=== PATIENT | male | born 1960 | race Caucasian/White ===

== ENCOUNTER 2017-01-27 14:16 | Observation (INO) ==
--- NOTE | 2017-01-27 14:56 | EKG Report ---
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
[2017-01-27 15:14] LABS: Basophils % 0.4 % (0.0-0.8); Eosinophils # 0.1 10*3/uL (0.0-0.87); Eosinophils % 0.7 % (0.00-10.9); Hematocrit 40.6 VOL% (42.0-52.0); Hemoglobin 14.3 GM/DL (14.0-18.0); Immature Granulocytes % 0.1 %; Immature Granulocytes Absolute 0.01 #; Lymphocytes # 2.4 10*3/uL (1.4-4.0); Mean Corpuscular HGB Conc 35.2 GM/DL (32-36); Mean Corpuscular Hemoglobin 30 PG (27-34); Mean Platelet Volume 9.9 FL (9.6-12.0); Monocytes # 0.4 10*3/uL (0.11-0.8); Monocytes % 5.5 % (1.7-12.7); Neutrophils # 4.3 10*3/uL (1.4-7.4); Neutrophils % 60.3 % (38.7-73.9); Platelet Count 123 T/CUMM (130-400); Red Blood Count 4.72 MC/CUMM (3.8-5.5); Red Cell Distribution Width 12.5 % (9.3-17.3); White Blood Count 7.1 T/CUMM (4-12)
[2017-01-27] MEDS ORDERED: SODIUM CHLORIDE 0.9% 500 ML IV STA (15:23)
[2017-01-27 15:44] LABS: INR 1.2; PT Patient Result 12.3 SECS
[2017-01-27 15:49] LABS: Alanine Aminotransferase 38 U/L (16-61); Albumin 3.8 G/DL (3.4-5.0); Alkaline Phosphatase 54 U/L (45-117); Aspartate Amino Transferase 24 U/L (0-37); Bilirubin,Total < 0.39 MG/DL (0.2-1.0); Blood Urea Nitrogen 14 MG/DL (7-18); Calcium 8.9 MG/DL (8.5-10.1); Glucose 96 MG/DL (74-106); Osmolality,Calculated 277.5 MOS/KG (273-304); Potassium 4.2 MMOL/L (3.5-5.1); Sodium 139 MMOL/L (136-145); Total Protein 7.4 G/DL (6.4-8.3)
--- NOTE | 2017-01-27 15:54 | CT Report ---
CT of the head without contrast. Indication: Mental status changes. Comparison: January 25, 2007. There is heavy calcific plaque present within the intracranial internal carotid arteries. There is a mild partial empty sella. There is either an arachnoid cyst or a prominent cisterna magna, which is stable. There is no mass effect or midline shift. There is no evidence of acute hemorrhage. No cortical infarcts are seen. The calvarium is intact. Included paranasal sinuses and the mastoid air cells are clear. Impression: Stable appearance of the brain. No acute intracranial process is seen. The CT exam was performed using one or more of the following dose reduction techniques: Automated exposure control, adjustment of the mA and/or kV according to patient size, or use of iterative reconstruction technique. PROCEDURE INTERPRETED AT [facility] DEPARTMENT OF RADIOLOGY Final Report Signed by: Dr. Carlie Hickman
--- NOTE | 2017-01-27 15:58 | XRay Report ---
Single view of the chest. Indication: Altered mental status. Comparison: June 09, 2015. The heart is normal in size. The lung dowling are hyperexpanded. There is interstitial fibrosis and scarring. There are calcified granulomas. No consolidation, pneumothorax, or pleural effusion. Chronic changes at the right shoulder. Impression: COPD. No acute abnormality. PROCEDURE INTERPRETED AT [facility] DEPARTMENT OF RADIOLOGY Final Report Signed by: Dr. Carlie Hickman
[2017-01-27 16:02] LABS: Magnesium 2.2 MG/DL (1.8-2.4); Troponin I Only < 0.015 NG/ML (0.00-0.045)
[2017-01-27 16:13] LABS: Prolactin 5.2 NG/ML
--- NOTE | 2017-01-27 16:18 | Emergency Department Note ---
Todd Rajan Brooke, am scribing for, and in the presence of, Nathaniel oD MD 15 :32. Hi Rajan Charles R, MD, personally performed the services described in this documentation, ascribed by Pinky Brooks in my presence, and it is both accurate and complete 618 . Arrival - Arrival Chief Complaint: Altered Mental Status Stated Complaint: DIZZY/SLURRED SPEECH/SAYING OFF WALL THINGS ED Nursing Triage Note: Pt into ER for altered mental status started today at work. States he feels weird and not here with a KUMAR and he was started on a new med by Dr Lee 2 days ago. Mode of Arrival: Wheelchair Limitations: No Limitations Source: Patient, RN Notes Reviewed Time Seen by Provider: 01/27/17 14:28 - History of Present Illness HPI Narrative: Patient is a 56 year old male who presents to the ED with c/o altered mental status. Patient says he was at work, at a halfway, talking to someone and then doesn't remember what happened. He says he was told that he leaned up against a wall and was "in a daze." Patient says he did not know where he was at. He is unsure if his speech was slurred at the time but it is not currently. He says "they" sat him down at took his blood pressure, temperature, and blood sugar but everything was "okay." Patient states "I feel like I'm dreaming, like I'm not here." He says his vision is currently blurry and there is some numbness to the right side of his face. He has not walked since this episode happened. Patient says he felt something "pop" in his head, about three weeks ago and has been having "horrible" headaches since. He had a CT scan done, two days ago, but says it was negative and his doctor told him he needed to be treated for Migraines. Patient has PMHx of liver cancer. He does not take any medications. Patient is a smoker and says a pack of cigarettes will last about a week. He denies any drug or alcohol use. Allergies/Adverse Reactions: Allergies Allergy/AdvReac Type Severity Reaction Status Date / Time Sulfa (Sulfonamide AdvReac Unknown/Unable Verified 05/09/16 22:37 Antibiotics) to obtain Home Medications: Home Medications Medication Instructions Recorded Confirmed Type Butalbital/Acet/Caff 50-325-40 1 - 2 tablet PO TID PRN 01/27/17 01/27/17 History [Fioricet 50-325-40 mg Tablet] Review of System - Review of System 12 point system: reviewed and no additional remarkable complaints except as stated - Review of System Constitutional: Absent: fever Eyes: Present: vision change (blurry) Respiratory: Absent: respiratory distress Skin: Absent: rash Neurological: Present: numbness (right side of face), other (episode where was "in a daze" and now feels "like I'm dreaming") Medical,Surgical,& Family Hx - Medical History Neurology: No history of: Seizures Genitourinary: History of: Kidney Stones Gastrointestinal: History of: Liver Problems (STAGE II LIVER CA) Other: History of: Miscellaneous Medical Problems (HEP C) - Surgical History Thoracic Surgeries: Patient denies;: Lobectomy Neurologic Surgeries: Patient denies: Neurologic Surgery Abdominal Surgeries: Surgical HX of: Abdominal Surgery, Appendectomy, Cholecystectomy Reproductive Surgeries: Patient denies;: Genitourinary Surgery - Social History Smoking Status: Current every day smoker Exam Vital Signs: Vital Signs Temperature 97.6 F 01/27/17 14:56 Pulse Rate 66 01/27/17 14:56 Respiratory Rate 16 01/27/17 14:56 Blood Pressure 127/83 01/27/17 14:56 O2 Sat by Pulse Oximetry 100 01/27/17 16:45 - General General appearance: alert, in no apparent distress - Head Head exam: Present: atraumatic, normocephalic - Eye Eye exam: Present: normal appearance, PERRL, EOMI - ENT ENT exam: Present: normal exam - Neck Neck exam: Present: normal inspection - Chest Chest inspection: Present: normal inspection, symmetric chest wall rise - Respiratory Respiratory exam: Present: normal lung sounds bilaterally - Cardiovascular Cardiovascular exam: Present: regular rate, normal rhythm, normal heart sounds - Abdominal Exam Abdominal exam: Present: soft, normal bowel sounds. Absent: distention, tenderness - Extremities Exam Extremities exam: Present: normal inspection - Back Exam Back exam: Present: normal inspection - Neurological Exam Neurological exam: Present: alert, oriented X3, CN II-XII intact, other (No CVA features. Talking but says he "feels like I'm dreaming." No confusion. Right facial numbness.) - Psychiatric Psychiatric exam: Present: normal affect, normal mood - Skin Skin exam: Present: warm, dry, intact, normal color Course - Consultations Consultation #1: Dr. Lee will admit patient Time: 18:19 Results - Labs CBC & BMP: 01/27/17 15:00 01/27/17 15:00 Lab Results: I have reviewed the patients labs Labs: Laboratory Tests 01/27/17 01/27/17 01/27/17 15:00 15:00 15:00 INR 1.2 PT Patient/Control Mix 12.3 Sodium 139 Potassium 4.2 Chloride 108 H Carbon Dioxide 24 Anion Gap 11.2 BUN 14 Creatinine 0.90 GFR Calculation 104 BUN/Creatinine Ratio 15.00 Glucose 96 Calculated Osmolality 277.5 Calcium 8.9 Magnesium 2.2 Total Bilirubin < 0.39 AST 24 ALT 38 Alkaline Phosphatase 54 Troponin I < 0.015 Total Protein 7.4 Albumin 3.8 Globulin 3.6 H Albumin/Globulin Ratio 1.0 L Serum Alcohol < 15 L Laboratory Tests 01/27/17 15:00 Prolactin 5.2 Treponema pallidum IgG Nonreactive Laboratory Tests 01/27/17 15:00 ESR Westergren 17 Laboratory Tests 01/27/17 01/27/17 15:00 15:00 Urine Color Yellow Urine Appearance Clear Urine pH 6.0 Ur Specific Allen 1.017 Urine Protein Negative Urine Glucose (UA) Negative Urine Ketones Negative Urine Blood Negative Urine Nitrate Negative Urine Bilirubin Negative Urine Urobilinogen < 2.0 H Urine Leukocytes Negative Urine RBC 1 Urine WBC 1 Urine Mucus Occasional Ur Culture Indicated? Not indicated Urine Opiates Screen Negative Ur Barbiturates Screen Positive H Ur Phencyclidine Scrn Negative U Amphetamine/Methamph Negative U Benzodiazepines Scrn Negative U Cocaine Metab Screen Negative U Cannabinoids Screen Positive H - Diagnostic Findings Procedure: Chest x-ray: report reviewed by me (COPD. No acute abnormality.), KUB x-ray: pending, CT: report reviewed by me (CT head/brain wo con: Stable appearance of the brain. No acute intracranial process is seen. ) Disposition Clinical Impression: Altered mental status, Hepatitis C, Confusion Case discussed with: patient Disposition: Still a Patient Condition: Stable Time of Disposition: 18:20
[2017-01-27 17:30] LABS: Apearance,Urine CLEAR (Clear); Bilirubin,Urine Negative (Negative); Blood, Urine Negative (Negative); Glucose,Urine (UA) Negative (Negative); Ketones,Urine Negative (Negative); Mucus,Urine Occasional /LPF (Occasional); Nitrite,Urine Negative (Negative); Protein,Urine Negative; RBC,Urine 1 /HPF (0-4); Urine Color Yellow (Yellow); Urine Specific Gravity 1.017 (1.001-1.035); Urine Urobilinogen < 2.0 EU/DL (0.2-1.0); WBC,Urine 1 /HPF (0-6)
[2017-01-27 17:41] LABS: Barbiturates Screen,Urine Positive (Negative); Benzodiazepines Screen,Urine Negative (Negative); Cannabinoid Screen,Urine Positive (Negative); Opiate Screen,Urine Negative (Negative); Phencyclidine Screen,Urine Negative (Negative)
[2017-01-27] MEDS ORDERED: ENOXAPARIN 40 MG/0.4 ML SYRINGE SUBCUT SCH (21:00)
[2017-01-27] MEDS ORDERED: ONDANSETRON 4 MG/2 ML VIAL IV PRN (21:13)
[2017-01-27] MEDS ORDERED: LACTULOSE 20 GM/30 ML UDCUP PO PRN (21:13)
[2017-01-27] MEDS ORDERED: MORPHINE 2 MG/1 ML SYRINGE IV PRN (21:13)
[2017-01-27] MEDS ORDERED: ACETAMINOPHEN 325 MG TABLET PO PRN (21:13)
[2017-01-27] MEDS: DOCUSATE SODIUM 100 MG CAPSULE PO SCH (22:52)
[2017-01-27] MEDS: SODIUM CHLORIDE 0.9% 1,000 ML IV SCH (22:53)
[2017-01-28 05:05] LABS: Basophils % 0.5 % (0.0-0.8); Eosinophils # 0.1 10*3/uL (0.0-0.87); Eosinophils % 1.2 % (0.00-10.9); Hematocrit 38.8 VOL% (42.0-52.0); Hemoglobin 13.6 GM/DL (14.0-18.0); Immature Granulocytes % 0.3 %; Immature Granulocytes Absolute 0.02 #; Lymphocytes # 2.5 10*3/uL (1.4-4.0); Lymphocytes % 44.3 % (21.2-54.2); Mean Corpuscular HGB Conc 35.1 GM/DL (32-36); Mean Corpuscular Hemoglobin 30 PG (27-34); Mean Corpuscular Volume 86.6 FL (87-102); Mean Platelet Volume 10.4 FL (9.6-12.0); Monocytes # 0.4 10*3/uL (0.11-0.8); Monocytes % 6.1 % (1.7-12.7); Neutrophils # 2.7 10*3/uL (1.4-7.4); Neutrophils % 47.6 % (38.7-73.9); Platelet Count 97 T/CUMM (130-400); Red Blood Count 4.48 MC/CUMM (3.8-5.5); Red Cell Distribution Width 12.6 % (9.3-17.3); White Blood Count 5.7 T/CUMM (4-12)
[2017-01-28 05:28] LABS: Lymphocytes 34 % (20-55); Segmented Neutrophils 58 % (50-85); Total Cells Counted 100
[2017-01-28 05:29] LABS: Hypochromasia Slight
[2017-01-28 05:30] LABS: Microcytosis Slight; Platelet Estimate Decreased
[2017-01-28 05:43] LABS: Alanine Aminotransferase 38 U/L (16-61); Albumin 3.2 G/DL (3.4-5.0); Alkaline Phosphatase 65 U/L (45-117); Aspartate Amino Transferase 23 U/L (0-37); Bilirubin,Total < 0.39 MG/DL (0.2-1.0); Blood Urea Nitrogen 16 MG/DL (7-18); Calcium 7.9 MG/DL (8.5-10.1); Cholesterol 90 MG/DL (50-200); Glucose 99 MG/DL (74-106); HDL Cholesterol 20 MG/DL (40-60); Magnesium 2.5 MG/DL (1.8-2.4); Osmolality,Calculated 279.4 MOS/KG (273-304); Potassium 4.2 MMOL/L (3.5-5.1); Sodium 140 MMOL/L (136-145); Total Protein 6.2 G/DL (6.4-8.3); Triglycerides 222 MG/DL (2-150); VLDL CHOLESTEROL 44.4 MG/DL
--- NOTE | 2017-01-28 08:22 | Family Practice History&Phys ---
Assessment and Plan (1) Transient ischemic attack Status: Acute Assessment and plan: 01/28/2017: We will get neurology to evaluate. Patient's been given appropriate medication/anticoagulation at this time. We will also check a B12 and folic acid. A carotid duplex has been ordered as well Current Visit: Yes (2) Deficit in communication due to slurred speech Status: Resolved Assessment and plan: 01/28/2017: No slurred speech present. Is very alert and oriented answering all questions Current Visit: Yes (3) Altered mental status Status: Acute Assessment and plan: 01/28/2017: Patient is quite alert and answering all questions appropriately will do a neurologic workup with neuro consult Current Visit: Yes History of Present Illness Chief complaint: Confusion, slurred speech History of present illness: Mr. Estrada is a 56 year old male Known to me. I see him in the clinic. 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 Apparently was at the skilled nursing outside yesterday standing talking to a cohort and according to second person he became "confused " and started having some slurred speech. He "stopped talking."Patient states he became like in a dream state and really does not remember anything too much after that until he got to the emergency room and when they asked him where he was he did not know. In addition have a little numbness to the right side of his face at the time. He never passed out, but leaned against the wall. It did not occur after he had leaned over and does not appear to be an orthostatic situation although he could have been a factor. Historically has a history of epilepsy when he was a child, secondary to a fall when he was 1 years old. His last known seizure was at about age 4 but he did take Dilantin and phenobarbital for these until he was up to over 9 or 10 years of age. Otherwise has a history of hepatitis C (liver enzymes are completely normal at present), recent headaches which have treated him for in the clinic. Essentially negative history otherwise. In the emergency room a CT of the head was negative, he did test positive for barbiturates but I had given him Fioricet, for his headaches, which would cause this to be positive. He admits that he smoked marijuana only January 09 but does not routinely smoke. I do not believe this was a major factor in the situation however told him he needed to not do this. Does use tobacco on a regular basis and occasional alcohol. At present no CN deficits or peripherall lateralizing signs. Alert and oriented without M or S deficits. Plan neuro concult and check further lab. Carotid dulplex. Home Medications Medication Instructions Recorded Confirmed Type Butalbital/Acet/Caff 50-325-40 1 - 2 tablet PO TID PRN 01/27/17 01/27/17 History [Fioricet 50-325-40 mg Tablet] Allergies Allergy/AdvReac Type Severity Reaction Status Date / Time Sulfa (Sulfonamide AdvReac Unknown/Unable Verified 05/09/16 22:37 Antibiotics) to obtain 12 point system: reviewed and no additional remarkable complaints except as stated (those mentioned in HandP) - Constitutional Constitutional: Absent: anorexia - EENT Eyes: Present: blurry vision. Absent: diplopia, loss of vision - Cardiovascular Cardiovascular: Absent: chest pain at rest - Respiratory Respiratory: Absent: cough - Gastrointestinal Gastrointestinal: Absent: abdominal pain - Genitourinary Genitourinary: Absent: difficulty urinating - Neurological Neurological: Absent: abnormal gait Medical,Surgical,& Family Hx - Medical History Neurology: History of: Seizures HEENT: No history of: Ear Problem, Eye Problem, Dental Problems, Glaucoma, Oral Cancer, HEENT Problems Respiratory: History of: Bronchitis Genitourinary: History of: Kidney Stones Gastrointestinal: History of: Liver Problems (STAGE II LIVER CA) Musculoskeletal: No history of: Amputation Other: History of: Miscellaneous Medical Problems (HEP C) - Surgical History Thoracic Surgeries: Patient denies;: Organ Transplant, Lobectomy Neurologic Surgeries: Patient denies: Neurologic Surgery HEENT Surgeries: Surgical HX of: Tonsilectomy & Adenoidectomy Patient denies: Eye Surgery Abdominal Surgeries: Surgical HX of: Abdominal Surgery, Appendectomy, Cholecystectomy Reproductive Surgeries: Patient denies;: Genitourinary Surgery Orthopedic Surgeries: Patient denies;: Implanted Devices, Orthopedic Surgery, Spinal Surgery, Total Hip Replacement, Total Knee Replacement - Family History Family History: Reports;: Family Diabetes, Family Hypertension - Social History Smoking Status: Current every day smoker Frequency of Alcohol Use: None Type of Drug Use: None Exam - Constitutional Vitals: Period Temp Pulse Resp BP Sys/Burgess Pulse Ox Last 24 Hr 97.1 F-98.2 F 56-73 16-20 97-127/61-83 21-100 Exam: Generally patient is alert and oriented and no focal findings at present. HEENT: Pupils equally reactive to light extraocular movements are intact, neck is supple trachea midline patient has good cough and swallow reflex. Cardiovascular rate is regular no gallop or rub denies any chest pain Lungs clear no shortness of breath (patient is a heavy smoker) Abdomen soft nondistended denies any abdominal pain and is eating well at present Extremities no clubbing cyanosis edema Neurologically normal cranial nerves, no peripheral lateralizing signs, no motor or sensory deficit Results - Labs CBC & BMP: 01/28/17 04:47 01/28/17 04:47 Quality Measures - Stroke Symptom Onset Unknown: No
[2017-01-28] MEDS ORDERED: PANTOPRAZOLE 40 MG TABLET PO SCH (09:00)
[2017-01-28] MEDS: DOCUSATE SODIUM 100 MG CAPSULE PO SCH (09:40)
--- NOTE | 2017-01-28 09:40 | Ultrasound Report ---
US carotid duplex BI Indication: Altered mental status. Comparison: Carotid ultrasound dated January 06, 2013. Technique: Multiple longitudinal and transverse real-time sonographic images of the bilateral carotid arterial systems are obtained with grayscale, spectral, and color Doppler analysis. Findings: Peak systolic velocities within the right CCA, proximal ICA, and distal ICA are 78, 95, and 109 cm/s respectively. Peak systolic velocities within the left CCA, proximal ICA, and distal ICA are 98, 72, and 104 cm/s respectively. ICA/CCA ratios on the right and left are 1.4 and 1.1 respectively. Antegrade flow demonstrated within the bilateral vertebral arteries. Grayscale imaging demonstrates mild bilateral atherosclerotic plaque. IMPRESSION: No convincing sonographic evidence of significant (50% or greater) narrowing of either cervical internal carotid artery. Indirect NASCET criteria utilized. PROCEDURE INTERPRETED AT [facility] DEPARTMENT OF RADIOLOGY Final Report Signed by: Dr Jose Guadalupe Matson
[2017-01-28] MEDS: SODIUM CHLORIDE 0.9% 1,000 ML IV SCH ×2 (09:42→17:23)
[2017-01-28 10:21] LABS: Folate 21.4 NG/ML (5.4-24.0)
--- NOTE | 2017-01-28 12:55 | Neurology Consult Note ---
History of Present Illness History of present illness: 56 years old right-handed white gentleman with past medical history significant for history of smoking, questionable childhood seizure, hepatitis C, new onset of headaches admitted to the hospital after he developed some confusion and slurred speech. 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 Apparently was at the prison outside yesterday standing talking to a cohort and according to second person he became "confused" and started having some slurred speech. He "stopped talking."Patient states he became like in a dream state and really does not remember anything too much after that until he got to the emergency room and when they asked him where he was he did not know. In addition have a little numbness to the right side of his face at the time. He never passed out, but leaned against the wall. CT of the head and carotid ultrasound are all unremarkable. Triglycerides are high. Toxicology reveals positive marijuana. Patient is back to his normal self. Is still complaining of some headache. Sed rate is 17. Home Medications Medication Instructions Recorded Confirmed Type Butalbital/Acet/Caff 50-325-40 1 - 2 tablet PO TID PRN 01/27/17 01/27/17 History [Fioricet 50-325-40 mg Tablet] Allergies Allergy/AdvReac Type Severity Reaction Status Date / Time Sulfa (Sulfonamide AdvReac Unknown/Unable Verified 05/09/16 22:37 Antibiotics) to obtain 12 point system: reviewed and no additional remarkable complaints except as stated Medical,Surgical,& Family Hx - Medical History Neurology: History of: Seizures HEENT: No history of: Ear Problem, Eye Problem, Dental Problems, Glaucoma, Oral Cancer, HEENT Problems Respiratory: History of: Bronchitis Genitourinary: History of: Kidney Stones Gastrointestinal: History of: Liver Problems (STAGE II LIVER CA) Musculoskeletal: No history of: Amputation Other: History of: Miscellaneous Medical Problems (HEP C) - Surgical History Thoracic Surgeries: Patient denies;: Organ Transplant, Lobectomy Neurologic Surgeries: Patient denies: Neurologic Surgery HEENT Surgeries: Surgical HX of: Tonsilectomy & Adenoidectomy Patient denies: Eye Surgery Abdominal Surgeries: Surgical HX of: Abdominal Surgery, Appendectomy, Cholecystectomy Reproductive Surgeries: Patient denies;: Genitourinary Surgery Orthopedic Surgeries: Patient denies;: Implanted Devices, Orthopedic Surgery, Spinal Surgery, Total Hip Replacement, Total Knee Replacement - Family History Family History: Reports;: Family Diabetes, Family Hypertension - Social History Smoking Status: Current every day smoker Frequency of Alcohol Use: None Type of Drug Use: None Exam - Constitutional Vitals: Period Temp Pulse Resp BP Sys/Burgess Pulse Ox Last 24 Hr 97.1 F-98.2 F 56-73 16-20 97-127/61-83 21-100 Exam: GENERAL: Patient is in no acute distress. NECK: Neck is supple. There is no JVD. No carotid bruits present. No thyroid masses. CVS: First and second heart sounds are normal. There is no S3 present. Regular rate and rhythm. RESPIRATORY: Lungs are clear to auscultation without any rales or rhonchi. ABDOMEN: Soft and non-tender. Bowel sounds are present. There is no hepatosplenomegaly. EXT: There is no palpable edema. Peripheral pulses are present. Skin: No rashes Central Nervous system: General: Alert, awake and Oriented x 3 Speech: Fluent Comprehension: Intact and normal Facial expressions: Normal Cranial Nerves: CN1/Olfactory: Normal CN II/ Optic: Normal, Visual Bashir unreliable CN III, and : BERT & EOMI CN V: Normal & intact CN VII: face is symmetric CNVIII: Normal CN XI/X/XI/XII: Intact and Normal Motor: Bulk and Tone is normal. Strength in the right 5/5 Strength in the left 5/5 Sensory: Grossly intact for all the modalities of PP, LT and temp sense Reflexes: 1+ and symmetrical Cerebellar function: Normal finger to nose and heel to squires testing. Toes: Equivocal Gait: Normal heel to heel and toe to toe and tandem walk. Results - Labs CBC & BMP: 01/28/17 04:47 01/28/17 04:47 Assessment and Plan (1) Daily headache Status: Acute Assessment and plan: Elavil 25 mg p.o. at bedtime Continue Fioricet as needed Current Visit: Yes (2) Transient ischemic attack Status: Acute Assessment and plan: Start aspirin a day Add Lipitor 10 mg daily Follow-up in 4 week Current Visit: Yes Specialty Discharge - Follow Up or Referrals Follow up with: Connor Moya MD [Physician] - 1 Month
[2017-01-28 16:09] VITALS: BP 131/80
--- NOTE | 2017-01-28 16:23 | Discharge Summary ---
Hospital Course - Hospital Course Hospital Course: 56 years old right-handed white gentleman and patient of mine with past medical history significant for history of smoking, questionable childhood seizure, hepatitis C, new onset of headaches admitted to the hospital after he developed some confusion and slurred speech. 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 Apparently was at the group home outside yesterday standing talking to a cohort and according to second person he became "confused " and started having some slurred speech. He "stopped talking."Patient states he became like in a dream state and really does not remember anything too much after that until he got to the emergency room and when they asked him where he was he did not know. In addition have a little numbness to the right side of his face at the time. He never passed out, but leaned against the wall. CT of the head and carotid ultrasound are all unremarkable. Triglycerides are high. Toxicology reveals positive marijuana. Patient is back to his normal self. Is still complaining of some headache. Sed rate is 17. Patient was evaluated treated and discharged from Neurology [facility] with DX TIA. He was treated wiht low dose Aspirin Elavil for headache and Lipitor for hyperlipidemia. He is to follow up with Neurology in one month and with me my office in one month. He is better this morning and ready for discharge at this time. Diagnosis - Discharge Diagnosis (1) Transient ischemic attack Status: Acute (2) Altered mental status Status: Acute Specialty Discharge - Follow Up or Referrals Follow up with: Connor Moya MD [Physician] - 1 Month (call tuesday morning to make a [address] Moya) Fraaz Lee DO [Physician] - 1 Month Discharge Plan - Discharge Data Disposition: Disch To Home/Self Care Condition at Discharge: Stable Discharge Diet: advance to your usual diet Activity: resume usual activities as tolerated Hygiene: no restrictions Weight Bearing at Discharge: weight bear as tolerated Driving: no restrictions Contact your physician if you experience:: fever over 101 - Discharge Medications New Amitriptyline [Elavil] 25 mg PO BEDTIME #90 tablet Aspirin EC Tab 81 mg PO DAILY tablet Atorvastatin [Lipitor] 10 mg PO BEDTIME #90 tablet Continue Butalbital/Acet/Caff 50-325-40 [Fioricet 50-325-40 mg Tablet] 1 - 2 tablet PO TID PRN PRN Reason: Headache - Follow Up or Referral Follow Up: Connor Moya MD [Physician] - 1 Month (call tuesday morning to make a [address] Moya) Faraz Lee DO [Physician] - 1 Month - Forms/Instructions Instructions: Altered Mental Status (GEN) Exam - Constitutional Vitals: Period Temp Pulse Resp BP Sys/[place] Pulse Ox Last 24 Hr 97.1 F-98.2 F 56-73 18-20 97-131/61-80 21-100 Discharge Results Labs on day of discharge: Labs from last 24 hours 01/28/17 01/28/17 01/28/17 04:47 04:47 04:47 WBC RBC Hgb Hct MCV MCH MCHC RDW Plt Count MPV Neut % (Auto) Lymph % (Auto) [place] % (Auto) Eos % (Auto) Baso % (Auto) Neut # (Auto) Lymph # (Auto) [place] # (Auto) Eos # (Auto) Baso # (Auto) Total Counted Immature Gran % Nucleated RBC % Immature Gran # Segmented Neutrophils Lymphocytes Monocytes Nucleated RBCs # Platelet Estimate Hypochromasia Microcytosis ESR Westergren Sodium 140 Potassium 4.2 Chloride 108 H Carbon Dioxide 26 Anion Gap 10.2 BUN 16 Creatinine 1.00 GFR Calculation 92 BUN/Creatinine Ratio 16.00 Glucose 99 Calculated Osmolality 279.4 Calcium 7.9 L Magnesium 2.5 H Total Bilirubin < 0.39 AST 23 ALT 38 Alkaline Phosphatase 65 Ammonia B-Natriuretic Peptide 60 Total Protein 6.2 L Albumin 3.2 L Globulin 3.0 Albumin/Globulin Ratio 1.0 L Triglycerides 222 H Cholesterol 90 LDL Cholesterol 50.0 VLDL Cholesterol 44.4 HDL Cholesterol 20 L Heart Disease Risk Ratio 4.50 Vitamin B12 279 Folate 21.4 Urine Color Urine Appearance Urine pH Ur Specific [place] Urine Protein Urine Glucose (UA) Urine Ketones Urine Blood Urine Nitrate Urine Bilirubin Urine Urobilinogen Urine Leukocytes Urine RBC Urine WBC Urine Mucus Ur Culture Indicated? Urine Opiates Screen Ur Barbiturates Screen Ur Phencyclidine Scrn U Amphetamine/Methamph U Benzodiazepines Scrn U Cocaine Metab Screen U Cannabinoids Screen 01/28/17 01/27/17 01/27/17 04:47 15:00 15:00 WBC 5.7 RBC 4.48 Hgb 13.6 L Hct 38.8 L MCV 86.6 L MCH 30 MCHC 35.1 RDW 12.6 Plt Count 97 L D MPV 10.4 Neut % (Auto) 47.6 Lymph % (Auto) 44.3 [place] % (Auto) 6.1 Eos % (Auto) 1.2 Baso % (Auto) 0.5 Neut # (Auto) 2.7 Lymph # (Auto) 2.5 [place] # (Auto) 0.4 Eos # (Auto) 0.1 Baso # (Auto) 0.0 Total Counted 100 Immature Gran % 0.3 Nucleated RBC % 0.0 Immature Gran # 0.02 Segmented Neutrophils 58 Lymphocytes 34 Monocytes 8 Nucleated RBCs # 0.00 Platelet Estimate Decreased Hypochromasia Slight Microcytosis Slight ESR Westergren Sodium Potassium Chloride Carbon Dioxide Anion Gap BUN Creatinine GFR Calculation BUN/Creatinine Ratio Glucose Calculated Osmolality Calcium Magnesium Total Bilirubin AST ALT Alkaline Phosphatase Ammonia B-Natriuretic Peptide Total Protein Albumin Globulin Albumin/Globulin Ratio Triglycerides Cholesterol LDL Cholesterol VLDL Cholesterol HDL Cholesterol Heart Disease Risk Ratio Vitamin B12 Folate Urine Color Urine Appearance Urine pH Ur Specific [place] Urine Protein Urine Glucose (UA) Urine Ketones Urine Blood Urine Nitrate Urine Bilirubin Urine Urobilinogen Urine Leukocytes Urine RBC Urine WBC Urine Mucus Ur Culture Indicated? Urine Opiates Screen Negative Ur Barbiturates Screen Positive H Ur Phencyclidine Scrn Negative U Amphetamine/Methamph Negative U Benzodiazepines Scrn Negative U Cocaine Metab Screen Negative U Cannabinoids Screen Positive H 01/27/17 01/27/17 15:00 15:00 WBC RBC Hgb Hct MCV MCH MCHC RDW Plt Count MPV Neut % (Auto) Lymph % (Auto) [place] % (Auto) Eos % (Auto) Baso % (Auto) Neut # (Auto) Lymph # (Auto) [place] # (Auto) Eos # (Auto) Baso # (Auto) Total Counted Immature Gran % Nucleated RBC % Immature Gran # Segmented Neutrophils Lymphocytes Monocytes Nucleated RBCs # Platelet Estimate Hypochromasia Microcytosis ESR Westergren 17 Sodium Potassium Chloride Carbon Dioxide Anion Gap BUN Creatinine GFR Calculation BUN/Creatinine Ratio Glucose Calculated Osmolality Calcium Magnesium Total Bilirubin AST ALT Alkaline Phosphatase Ammonia B-Natriuretic Peptide Total Protein Albumin Globulin Albumin/Globulin Ratio Triglycerides Cholesterol LDL Cholesterol VLDL Cholesterol HDL Cholesterol Heart Disease Risk Ratio Vitamin B12 Folate Urine Color Yellow Urine Appearance Clear Urine pH 6.0 Ur Specific [place] 1.017 Urine Protein Negative Urine Glucose (UA) Negative Urine Ketones Negative Urine Blood Negative Urine Nitrate Negative Urine Bilirubin Negative Urine Urobilinogen < 2.0 H Urine Leukocytes Negative Urine RBC 1 Urine WBC 1 Urine Mucus Occasional Ur Culture Indicated? Not indicated Urine Opiates Screen Ur Barbiturates Screen Ur Phencyclidine Scrn U Amphetamine/Methamph U Benzodiazepines Scrn U Cocaine Metab Screen U Cannabinoids Screen DS: Provider Date of admission: 01/27/17 18:20 Primary care physician: . No PCP Attending physician on admission: Faraz Lee DO Consults: 01/27/17 21:13 Consult to Case Mgmt/Social Srvs [CONS] Routine Reason for Case Mgmt/Social Srvs: Discharge Planning Consult to Physician [CONS] Routine Comment: Confusion, altered mental Consulting Provider: Connor Moya When should Consulting Provider be notified: In am Person Notified: Brigette Date Notified: 01/28/17 Time Notified: 11:19 Consult Notification Comment: message left at [phone] 01/28/17 Brigette called back after MD paged - informed patient name, number number, j number, and Discharging clinician: Faraz Lee DO
[2017-01-28] MEDS ORDERED: ATORVASTATIN 10 MG TABLET PO SCH (21:00)
[2017-01-28] MEDS ORDERED: AMITRIPTYLINE 25 MG TABLET PO SCH (21:00)
[2017-01-29] MEDS ORDERED: ASPIRIN EC 81 MG TABLET PO SCH (09:00)
== END 2017-01-28 18:35 | disposition home or self-care (01) ==
LOC: N.ED 14:16 → N.EDINP 18:20 → INTOOBSV 18:20 → N.EDINP 20:51 → N.3E 21:05
PROVIDERS: ADMIT Family Medicine; ATTEND Family Medicine

== ENCOUNTER 2019-01-18 18:23 | Observation (INO) ==
[2019-01-18 18:50] LABS: Basophils % 0.2 % (0.0-0.8); Hematocrit 44.9 VOL% (42.0-52.0); Hemoglobin 15.3 GM/DL (14.0-18.0); Immature Granulocytes % 0.5 %; Immature Granulocytes Absolute 0.08 #; Lymphocytes % 5.5 % (21.2-54.2); Mean Corpuscular HGB Conc 34.1 GM/DL (32-36); Mean Corpuscular Volume 86.8 FL (87-102); Mean Platelet Volume 9.6 FL (9.6-12.0); Monocytes % 2.2 % (1.7-12.7); Neutrophils % 91.6 % (38.7-73.9); Platelet Count 195 T/CUMM (130-400); Red Blood Count 5.17 MC/CUMM (3.8-5.5); White Blood Count 17.4 T/CUMM (4-12)
[2019-01-18] MEDS ORDERED: KETOROLAC 30 MG/1 ML VIAL ONE (19:00)
[2019-01-18] MEDS ORDERED: ONDANSETRON 4 MG/2 ML VIAL IV ONE (19:00)
[2019-01-18] MEDS ORDERED: MORPHINE 4 MG/1 ML VIAL IV STA (19:00)
[2019-01-18] MEDS ORDERED: KETOROLAC 30 MG/1 ML VIAL IV STA (19:00)
[2019-01-18] MEDS ORDERED: SODIUM CHLORIDE 0.9% 1,000 ML IV STA (19:01)
[2019-01-18 19:16] LABS: Albumin 4.2 G/DL (3.4-5.0); Bilirubin,Total 0.7 MG/DL (0.2-1.0); Calcium 9.1 MG/DL (8.5-10.1); Osmolality,Calculated 283.4 MOS/KG (273-304); Total Protein 8.3 G/DL (6.4-8.3)
[2019-01-18 19:43] LABS: Lymphocytes 8 % (20-55); Platelet Estimate Normal; Segmented Neutrophils 90 % (50-85); Total Cells Counted 100
[2019-01-18] MEDS ORDERED: HYDROmorphone 2 MG/1 ML VIAL IV STA ×2 (19:43→20:13)
[2019-01-18] MEDS ORDERED: HYDROmorphone 2 MG/1 ML VIAL ONE (19:44)
[2019-01-18] MEDS ORDERED: TAMSULOSIN 0.4 MG CAPSULE PO ONE (20:13)
[2019-01-18] MEDS ORDERED: ACETAMINOPHEN 325 MG TABLET PO PRN (20:27)
[2019-01-18] MEDS ORDERED: ONDANSETRON 4 MG/2 ML VIAL IV PRN (20:27)
[2019-01-18] MEDS ORDERED: cefTRIAXone 1,000 MG in SYRINGE 1 EACH IV SCH (21:00)
[2019-01-18] MEDS: SODIUM CHLORIDE 0.9% 1,000 ML IV SCH (23:50)
[2019-01-19] MEDS: HYDROmorphone 2 MG/1 ML VIAL IV PRN ×2 (00:33→10:13)
[2019-01-19 00:34] LABS: Apearance,Urine CLOUDY (Clear); Bacteria,Urine Moderate /HPF (Few); Bilirubin,Urine Negative (Negative); Blood, Urine Large mg/dL (Negative); Glucose,Urine (UA) Negative (Negative); Hyaline Casts,Urine 27 /LPF (0-3); Ketones,Urine 5 mg/dL (Negative); Mucus,Urine Many /LPF (Occasional); Nitrite,Urine Negative (Negative); Protein,Urine 30 MG/DL; RBC,Urine 388 /HPF (0-4); Urine Color Amber (Yellow); Urine Specific Gravity 1.027 (1.001-1.035); Urine Urobilinogen < 2.0 EU/DL (0.2-1.0); WBC,Urine 15 /HPF (0-6)
[2019-01-19 04:35] LABS: Basophils % 0.2 % (0.0-0.8); Eosinophils % 0.1 % (0.00-10.9); Hematocrit 42.8 VOL% (42.0-52.0); Hemoglobin 13.9 GM/DL (14.0-18.0); Immature Granulocytes % 0.7 %; Lymphocytes # 1.8 10*3/uL (1.4-4.0); Lymphocytes % 12.8 % (21.2-54.2); Mean Corpuscular HGB Conc 32.5 GM/DL (32-36); Mean Corpuscular Volume 90.1 FL (87-102); Mean Platelet Volume 9.9 FL (9.6-12.0); Monocytes % 5.8 % (1.7-12.7); Neutrophils % 80.4 % (38.7-73.9); Platelet Count 134 T/CUMM (130-400); Red Blood Count 4.75 MC/CUMM (3.8-5.5); Red Cell Distribution Width 12.2 % (9.3-17.3)
[2019-01-19 04:54] LABS: Albumin 3.8 G/DL (3.4-5.0); Bilirubin,Total 0.8 MG/DL (0.2-1.0); Calcium 8.7 MG/DL (8.5-10.1); Osmolality,Calculated 284.3 MOS/KG (273-304); Total Protein 7.2 G/DL (6.4-8.3)
[2019-01-19] MEDS: SODIUM CHLORIDE 0.9% 1,000 ML IV SCH (08:22)
[2019-01-19] MEDS ORDERED: ASPIRIN EC 81 MG TABLET PO SCH (09:00)
[2019-01-19] MEDS ORDERED: PANTOPRAZOLE 40 MG TABLET PO SCH (09:00)
[2019-01-19 11:45] VITALS: BP 120/71
[2019-01-19] MEDS ORDERED: ATORVASTATIN 10 MG TABLET PO SCH (21:00)
[2019-01-19] MEDS ORDERED: AMITRIPTYLINE 25 MG TABLET PO SCH (21:00)
== END 2019-01-19 13:38 | disposition home or self-care (01) ==
LOC: N.ED 18:23 → N.EDINP 18:23 → N.5E 23:09
PROVIDERS: ADMIT Family Medicine; ATTEND Family Medicine